=== PATIENT | male | born 1985 | race Caucasian/White ===

== ENCOUNTER → 2017-01-25 11:00 | Outpatient (CLI) | payer OTHER ==
[2017-01-25 11:39] LABS: BASOPHILS 0.5 % (0-2); EOSINOPHILS 2.4 % (0-7); HEMATOCRIT 42.9 % (42.0-54.0); HEMOGLOBIN 15.1 g/dL (13.5-17.5); IMMATURE GRANULOCYTES 0.2 % (0-5); LYMPHOCYTES 23.3 % (15-50); MCH 32.1 pg (26.0-34.0); MCHC 35.2 g/dL (31.0-37.0); MCV 91.1 fL (80.0-100.0); MEAN PLATELET VOLUME 9.6 fL (7.4-10.4); MONOCYTES 8.7 % (2-11); NEUTROPHILS 64.9 % (40-80); PLATELET COUNT 208 10x3/uL (130-400); RBC 4.71 10x6/uL (4.20-6.10); RDW 11.6 % (11.5-14.5); WBC 6.3 10x3/uL (4.8-10.8)
[2017-01-25 12:10] LABS: % SATURATION 14 % (15-55); INR 0.97 (0.85-1.17); IRON 45 ug/dl (35-150); PROTIME 12.8 SECONDS (11.6-15.0); TOTAL IRON BIND CAPACITY 312 ug/dl (260-445); UNSAT IRON BIND CAPACITY 267 ug/dl (150-375)
[2017-01-25 12:11] LABS: APTT 27.7 SECONDS (22.8-39.4)
[2017-01-25 12:23] LABS: ALBUMIN 4.1 g/dL (3.4-5.0); ALKALINE PHOSPHATASE 64 U/L (46-116); ALT (SGPT) 62 U/L (10-68); BILIRUBIN - DIRECT 0.21 mg/dL (0.00-0.30); BILIRUBIN - INDIRECT 1.16 mg/dL (0.00-1.00); BILIRUBIN - TOTAL 1.37 mg/dL (0.2-1.3); CALC OSMOLALITY 281 mosm/kg (275-300); CALCIUM 9.1 mg/dL (8.5-10.1); CARBON DIOXIDE 30.7 mmol/L (21.0-32.0); CHLORIDE - SERUM 103 mmol/L (98-107); CHOL - HDL RATIO 4.3 ratio (2.3-4.9); CHOLESTEROL, TOTAL 152 mg/dL (0-200); CREATININE - SERUM 0.9 mg/dL (0.6-1.3); FERRITIN 111 ng/mL (3-244); GAMMA GT 28 U/L (5-85); GLUCOSE 92 mg/dL (74-106); HDL CHOLESTEROL 35 mg/dL (32-96); LDL CHOLESTEROL 86 mg/dL (0-100); LDL-HDL RATIO 2.5 ratio (1.5-3.5); POTASSIUM - SERUM 4.5 mmol/L (3.5-5.1); PROTEIN - SERUM 7.8 g/dL (6.4-8.2); SODIUM 141 mmol/L (136-145); TRIGLYCERIDE 159 mg/dL (30-200); UREA NITROGEN 15 mg/dL (7-18); eGFR NON AFRICAN AMERICAN > 90 mL/min (90-120)
[2017-01-26 08:20] LABS: FOLATE (FOLIC ACID) - SERUM >20.0 ng/mL (>3.0)
[2017-01-26 09:17] LABS: HEPATITIS C ANTIBODY <0.1 (0.0-0.9)
[2017-01-26 10:18] LABS: HAPTOGLOBIN 163 mg/dL (34-200)
[2017-01-26 11:18] LABS: ALPHA FETOPROTEIN -(TUMOR MRK) 1.9 ng/mL (0.0-8.3); ANA REFLEX - DIRECT Negative (Negative)
== END | disposition home or self-care (01) ==
LOC: D.LAB 11:00
PROVIDERS: Internal Medicine Gastroenterology
DX: R74.8 Abnormal levels of other serum enzymes (principal)

== ENCOUNTER → 2017-07-04 11:07 | Outpatient (CLI) | payer OTHER | END | disposition home or self-care (01) | LOC: D.NM 07-03 09:30 | DX: R10.11 Right upper quadrant pain (principal); R19.7 Diarrhea, unspecified ==